=== PATIENT | female | born 1970 | race Caucasian/White ===

== ENCOUNTER 2024-05-15 11:34 | Outpatient (REF) | payer OTHER, SELFPAY ==
[2024-05-15 13:15] LABS: Erythrocyte Sedimentation Rate 7 MM/HR (0-20)
[2024-05-15 13:31] LABS: Thyroid Stimulating Hormone 0.94 uIU/mL (0.32-4.0)
[2024-05-15 13:40] LABS: Folate 14.2 ng/mL (> or = 4.0); Vitamin B12 838 pg/mL (200-900)
[2024-05-16 07:47] LABS: Syphilis Screen Nonreactive (Nonreactive)
[2024-05-17 05:32] LABS: Lyme Abs Screen <0.90 index
== END 2024-05-15 11:35 | disposition home or self-care (01) ==
LOC: HO.LAB 11:34
PROVIDERS: PCP Internal Medicine; Visit Provider Psychiatry & Neurology Neurology
DX: G93.40 Encephalopathy, unspecified (principal)
CPT/HCPCS: 36415; 82607; 82746; 84443; 85652; 86617; 86618; 86780